=== PATIENT | male | born 1995 | race Caucasian/White ===

== ENCOUNTER 2016-12-03 17:42 | Emergency (ER) | payer SELFPAY ==
[~2016-12-03] VITALS: Wt 75.0 kg
[2016-12-03] MEDS ORDERED: SOD CHLORIDE 0.9% 1,000 ML IV STA ×2 (17:47)
[2016-12-03] MEDS ORDERED: CEFTRIAXONE 1 GM/50 ML (PMX) 50 ML IVPB ONE (18:00)
[2016-12-03] MEDS ORDERED: SILVER SULFADIAZINE 1% 25 GM CR TOP ONE (18:00)
[2016-12-03] MEDS ORDERED: HYDROmorphONE 2 MG/ML SYG IV ONE (18:00)
[2016-12-03] MEDS ORDERED: ONDANSETRON 4 MG INJ IV ONE (18:00)
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
[2016-12-03] MEDS ORDERED: HYDROmorphONE 1 MG/ML SYG IV STA (18:03)
[2016-12-03 18:10] VITALS: BP 162/100; PULSE 108; RESP 15; TEMP 98.7
[2016-12-03] MEDS ORDERED: LORAZEPAM 2 MG INJ IV ONE (18:30)
== END 2016-12-03 18:40 | disposition short-term general hospital (02) ==
LOC: E/R 17:42
DX: T20.36XA Burn of third degree of forehead and cheek, initial encounter (principal); T20.32XA Burn of third degree of lip(s), initial encounter; T20.3 Burn of third degree of head, face, and neck; T22.312A Burn of third degree of left forearm, initial encounter; T22.311A Burn of third degree of right forearm, initial encounter; T23.201A Burn of second degree of right hand, unspecified site, initial encounter; T23.202A Burn of second degree of left hand, unspecified site, initial encounter; R40.2252 Coma scale, best verbal response, oriented, at arrival to emergency department; R40.2142 Coma scale, eyes open, spontaneous, at arrival to emergency department; R40.2362 Coma scale, best motor response, obeys commands, at arrival to emergency department; X19.XXXA Contact with other heat and hot substances, initial encounter; Y92.9 Unspecified place or not applicable
CPT/HCPCS: 36415; 96374; 96375; 99291; J0696; J1170; J2060; J2405; J7030